=== PATIENT | female | born 2000 | race Caucasian/White ===

== ENCOUNTER 2022-03-09 04:59 | Emergency (ER) | payer OTHER ==
[~2022-03-09] VITALS: Ht 187.9 cm; Wt 79.4 kg
[2022-03-09] MEDS ORDERED: LEXAPRO10 MG PO (05:26)
== END 2022-03-09 06:42 | disposition home or self-care (01) ==
LOC: ED 04:59
DX: S01.81XA Laceration without foreign body of other part of head, initial encounter (principal); Z79.899 Other long term (current) drug therapy; V89.2XXA Person injured in unspecified motor-vehicle accident, traffic, initial encounter; Y93.89 Activity, other specified; Y92.89 Other specified places as the place of occurrence of the external cause; Y99.8 Other external cause status